=== PATIENT | male | born 1975 | race African-American/Black ===

== ENCOUNTER 2018-02-22 03:42 | Emergency (ER) | payer OTHER | END 2018-02-22 04:24 | disposition other institution (70) | LOC: ED 03:42 | DX: Z02.89 Encounter for other administrative examinations (principal) ==

== ENCOUNTER 2018-02-22 03:42 | Emergency (ER) | payer SELFPAY ==
[~2018-02-22] VITALS: Ht 182.9 cm; Wt 77.1 kg
[2018-02-22 03:44] VITALS: Ht 182.9 cm; Wt 77.1 kg
[2018-02-22 04:23] VITALS: BP 163/97
== END 2018-02-22 04:24 | disposition other institution (70) ==
LOC: ED 03:42
DX: I10 Essential (primary) hypertension (principal); M79.10 Myalgia, unspecified site; R07.89 Other chest pain; Z13.89 Encounter for screening for other disorder